=== PATIENT | female | born 2005 | race Caucasian/White ===

== ENCOUNTER 2024-05-12 01:47 | Emergency (ER) | payer BC, SELFPAY ==
[2024-05-12 02:03] VITALS: BP 120/74
[2024-05-12 02:10] VITALS: BP 121/68
--- NOTE | 2024-05-12 02:18 | ED.GENMED ---
History of Present Illness
<JOHN Mcneil - Last Filed: 05/12/24 06:09>
General
Chief Complaint: Fever
Source: patient
Time Seen by Provider: 05/12/24 02:06
Nursing documentation reviewed up to this point in time: agreed with
History of Present Illness
History of Present Illness:
Pt is a 18 yo F who presents to the emergency department tonight with fever, chills, N/V/D, cough, and nasal congestion that began on Wednesday. The patient states that she first noticed nasal congestion and then the other symptoms quickly developed
and have been constant since onset. Patient's mother states that her fever at home was around 103F since Wednesday. Pt reports that she has been having vomiting and has not been able to keep food down. She states she has been eating crackers but would
vomit. Pt reports she vomits around three times a day. Pt also reports having a cough with green sputum production. She states she also has had diarrhea at home. Pt states that she has been taking DayQuil, NyQuil, Zofran, and Advil. The last Advil
the patient took was at 11pm before coming to the ED. Pt denies chest pain, shortness of breath, urinary frequency or urgency, abdominal pain, wheezing, sick contacts. The patient's mother states that the patient has received the COVID vaccines and
the influenza vaccine in February.
Past History
<JOHN Mcneil - Last Filed: 05/12/24 06:09>
Past History
ED Past Medical History: Asthma
Social History
Tobacco: Non-smoker
Review of Systems
<JOHN Mcneil - Last Filed: 05/12/24 06:09>
Review of Systems
Allergies reviewed?: Yes
Constitutional: Reports fever, fatigue and chills
EENT: Reports sore throat and other (nasal congestion)
Respiratory: Reports cough (with green sputum production)
Cardiac: Reports no symptoms
ABD/GI: Reports nausea, vomiting and diarrhea
: Reports no symptoms
Musculoskeletal: Reports no symptoms
Skin: Reports no symptoms
Neurological: Reports no symptoms
Phy Exam
<Zuleyka Blanca, [facility] - Last Filed: 05/12/24 06:09>
General Physical Exam
General Presentation: no apparent distress
General age: appears stated age
General Skin: warm
General Habitus: normal
General Mental: alert
General Hydration: appears well hydrated
ENT Exam
ENT Exam: tonsillar exudate
Cardiovascular Exam
Cardiovascular Exam: regular rate/rhythm
Pulmonary Exam
Pulmonary Exam: lungs clear
Gastrointestinal Exam
Gastrointestinal Exam: non tender, soft and non distended
Palpation: right upper quadrant: No tenderness (Negative Quiroz's ) and right lower quadrant: No tenderness (Negative Quiroz's )
Course
<Zuleyka Blanca, [facility] - Last Filed: 05/12/24 06:09>
Orders/Labs/Results
Orders:
Orders
05/12/24 02:05
Test Result ONCE
05/12/24 02:19
COVID-19 Antigen Urgent
Source: Nasal Swab
Complete Blood Count/With Diff Urgent
Comprehensive Metabolic Panel Urgent
HCG, Serum Qualitative Screen Urgent
Monotest Urgent
Influenza A+B Rapid Molecular Urgent
DMITRI Source: Nasal Swab
Specimen Description:
05/12/24 02:36
Chest [CR Chest - 2 Views ] Urgent
Comment:
Reason For Exam: cough with green sputum, F/chills
05/12/24 03:10
Urinalysis Urgent
Date Specimen was Collected: 05/12/24
Time Specimen was Collected: 03:09
Urine Microscopic Urgent
Date Specimen was Collected: 05/12/24
Time Specimen was Collected: 03:09
05/12/24 04:24
0.9% Sodium Chloride 1000 ml [Nss] 1,000 ml IV BOLUS
05/12/24 05:17
CT Abd/pel Without Iv Or Oral Urgent
Comment: changed to non contrast per attending
Reason For Exam: liu flank pain, uti, hematuria r>L
05/12/24 05:25
Rapid Strep Group A Urgent
DMITRI Source: Throat/Pharynx
Specimen Description:
Date Specimen was Collected: 05/12/24
Time Specimen was Collected: 05:24
Abnormal Lab Results
05/12/24 05/12/24
02:19 03:10
Abs Immat Gran (auto) 0.1 H 10^3/uL
(0-0.05)
Absolute Neuts (auto) 7.8 H 10^3/uL
(1.4-6.5)
Neutrophils % 77.1 H %
(42.2-75.2)
Lymphocytes % 16.0 L %
(20.5-51.1)
Potassium 3.4 L mmol/L
(3.5-5.1)
Glucose 104 H mg/dl
(70-99)
Urine Ketones 2+ A
(Negative)
Ur Leukocyte Esterase 2+ A
(Negative)
Urine RBC 3-6 A /HPF
(0-2)
Urine WBC 16-20 A /HPF
(0-5)
Urine Bacteria Moderate A
(Negative)
05/12/24 02:19
05/12/24 02:19
Vital Signs
Initial and Last Documented VS:
Initial Vital Signs
Temp Pulse Resp Pulse Ox
98.8 F 102 20 98
05/12/24 01:48 05/12/24 01:48 05/12/24 01:48 05/12/24 01:48
Last Documented Vital Signs
Temp Pulse Resp BP Pulse Ox
98.8 F 103 13 121/68 95
05/12/24 01:48 05/12/24 02:15 05/12/24 02:15 05/12/24 02:10 05/12/24 02:15
<Vin Dominguez, DO - Last Filed: 05/12/24 06:01>
Orders/Labs/Results
Orders:
Orders
05/12/24 02:05
Test Result ONCE
05/12/24 02:19
COVID-19 Antigen Urgent
Source: Nasal Swab
Complete Blood Count/With Diff Urgent
Comprehensive Metabolic Panel Urgent
HCG, Serum Qualitative Screen Urgent
Monotest Urgent
Influenza A+B Rapid Molecular Urgent
DMITRI Source: Nasal Swab
Specimen Description:
05/12/24 02:36
Chest [CR Chest - 2 Views ] Urgent
Comment:
Reason For Exam: cough with green sputum, F/chills
05/12/24 03:10
Urinalysis Urgent
Date Specimen was Collected: 05/12/24
Time Specimen was Collected: 03:09
Urine Microscopic Urgent
Date Specimen was Collected: 05/12/24
Time Specimen was Collected: 03:09
05/12/24 04:24
0.9% Sodium Chloride 1000 ml [Nss] 1,000 ml IV BOLUS
05/12/24 05:17
CT Abd/pel Without Iv Or Oral Urgent
Comment: changed to non contrast per attending
Reason For Exam: liu flank pain, uti, hematuria r>L
05/12/24 05:25
Rapid Strep Group A Urgent
DMITRI Source: Throat/Pharynx
Specimen Description:
Date Specimen was Collected: 05/12/24
Time Specimen was Collected: 05:24
Abnormal Lab Results
05/12/24 05/12/24
02:19 03:10
Abs Immat Gran (auto) 0.1 H 10^3/uL
(0-0.05)
Absolute Neuts (auto) 7.8 H 10^3/uL
(1.4-6.5)
Neutrophils % 77.1 H %
(42.2-75.2)
Lymphocytes % 16.0 L %
(20.5-51.1)
Potassium 3.4 L mmol/L
(3.5-5.1)
Glucose 104 H mg/dl
(70-99)
Urine Ketones 2+ A
(Negative)
Ur Leukocyte Esterase 2+ A
(Negative)
Urine RBC 3-6 A /HPF
(0-2)
Urine WBC 16-20 A /HPF
(0-5)
Urine Bacteria Moderate A
(Negative)
05/12/24 02:19
05/12/24 02:19
Vital Signs
Initial and Last Documented VS:
Initial Vital Signs
Temp Pulse Resp Pulse Ox
98.8 F 102 20 98
05/12/24 01:48 05/12/24 01:48 05/12/24 01:48 05/12/24 01:48
Last Documented Vital Signs
Temp Pulse Resp BP Pulse Ox
98.8 F 103 13 121/68 95
05/12/24 01:48 05/12/24 02:15 05/12/24 02:15 05/12/24 02:10 05/12/24 02:15
<JOHN Mcneil - Last Filed: 05/12/24 06:09>
MDM/Problems Addressed
Differential Diagnosis Includes:
Pneumonia, COVID, influenza
<JOHN Mcneil - Last Filed: 05/12/24 06:09>
*Critical Care Note
Total Time (30-74mins, 75-104mins- exclusive of procedures): Not Applicable
<Vin Dominguez DO - Last Filed: 05/12/24 06:01>
Update Note
Update Note:
CT abdomen and pelvis noncontrast
IMPRESSION:
4.3 cm distended gallbladder, no calcified gallstones
Common bile duct and pancreas appear normal
Correlate clinically the need for follow-up right upper quadrant ultrasound
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
No evidence of appendicitis, diverticulitis
No AAA, bowel obstruction or free air
Flattening inferior vena cava compatible with dehydration
Lung bases are clear
Mild pectus excavatum deformity lower sternum incidentally
Results transmitted at 5:48 AM Eastern time
ED Attending Note
<JOHN Mcneil - Last Filed: 05/12/24 06:09>
-
Portions of this chart may have been created with voice recognition software.� Occasional wrong word or��sound alike� substitutions may have occurred due to the inherent limitations of voice recognition software.
<Vin Dominguez DO - Last Filed: 05/12/24 06:01>
ED Attending Note
Patient seen and examined by attending physician: Yes
I performed the substantive portion of visit, reviewed & personally made and approve the management plan that is documented in note by myself or NBA.: Yes
ED Attending Note:
This a pleasant 18-year-old female presents to the emergency department with fever. According to patient she has been sick for the last for 5 days. She has had fever and cough with bodyaches. Patient also reports urinary tract infection-like
symptoms. She has had vomiting with diarrhea. She has been taking ibuprofen last dose about 11 PM last evening. Last menstrual period was 2 weeks ago. Patient denies chest pain or shortness of breath. Patient was seen in conjunction with the PA
student. I have reviewed and agree with the history and treatment plan presented. On my independent physical exam, patient is awake, alert, and oriented x3 moderate acute distress. Skin is warm to the touch. She does have bilateral CVA
tenderness. Lungs are clear to auscultation bilaterally. Moves all 4 extremities. Normal muscle strength.
Discharge Plan
Departure
Prescriptions:
No Action
albuterol sulfate 18 GM HFA aerosol inhaler
2 puff IH QIDPRN PRN (Reason: cough, wheeze) Qty: 1 0RF
fluticasone propionate [Flovent HFA] 1 PUFF HFA aerosol inhaler
2 puff inhalation R BID Qty: 1 1RF
prednisone 20 MG tablet
20 mg PO DAILY Qty: 5 0RF
epinephrine [EpiPen] 0.3 MG/0.3/SYRINGE auto-injector
0.3 mg IM PRN PRN (Reason: severe allergic reaction) Qty: 2 1RF
oseltamivir [Tamiflu] 75 mg capsule
75 mg PO BID 5 Days Qty: 10 0RF
ondansetron 4 mg tablet,disintegrating
4 mg PO Q8H PRN (Reason: nausea and vomiting) Qty: 20 0RF
Referrals:
UNKNOWN - PT DOES,NOT KNOW [Family Provider] -
Interventions
Interventions:
*Risk Screen - Suicide Last Done: 05/12/24 01:48
*General Assessment Last Done: 05/12/24 01:48
*Neglect/Abuse Screening Last Done: 05/12/24 01:48
ED- Fall Risk Assessment Last Done: 05/12/24 02:23
*ED COVID-19 Vaccine History Last Done: 05/12/24 01:48
ED- Neurological Assessment Last Done: 05/12/24 02:23
ED-Skin Assessment Last Done: 05/12/24 02:23
Discharge Date and Time
Print Language: WELSH
[2024-05-12 02:23] VITALS: BMI 21.7
[2024-05-12 03:03] LABS: % Basophils 0.2 % (0-2); % Immature Granulocytes 0.5 % (0-0.5); % Monocytes 6.2 % (1.7-9.3); % Neutrophils 77.1 % (42.2-75.2); Absolute Immature Granulocytes 0.1 10^3/uL (0-0.05); Absolute Lymphocytes 1.6 10^3/uL (1.2-3.4); Absolute Monocytes 0.6 10^3/uL (0.1-0.6); Absolute Neutrophils 7.8 10^3/uL (1.4-6.5); Hemoglobin 14.1 g/dL (12.0-16.0); Mean Corp Hgb Conc. 33.6 g/dL (33.0-37.0); Mean Corpuscular Hgb 28.6 pg (27.0-31.0); Mean Corpuscular Volume 85.2 fL (81.0-99.0); Mean Platelet Volume 9.9 fL (7.4-10.4); Nucleated Red Blood Cells % 0 %; Platelet Count 264 10^3/uL (130-400); Red Blood Cell Count 4.93 10^6/uL (4.20-5.40); Red Cell Dist. Width 12.3 % (11.5-14.5); White Blood Cell Count 10.1 10^3/uL (4.8-10.8)
[2024-05-12 03:08] VITALS: BP 113/71
[2024-05-12 03:11] LABS: HCG, Serum Qualitative Screen Negative
[2024-05-12 03:15] LABS: ALT (SGPT) 14 U/L (0-35); AST (SGOT) 26 U/L (14-36); Albumin 4.4 g/dl (3.5-5.0); Alkaline Phosphatase 67 U/L (38-126); Blood Urea Nitrogen 16 mg/dl (7-17); Calcium 9.2 mg/dl (8.4-10.2); Carbon Dioxide 23 mmol/L (22-30); Chloride 98 mmol/L (98-107); Estimated Creatinine Clearance 87 ml/min; Glucose 104 mg/dl (70-99); Potassium 3.4 mmol/L (3.5-5.1); Sodium 138 mmol/L (135-145); Total Bilirubin 0.2 mg/dl (0.2-1.3); Total Protein 7.5 g/dl (6.3-8.2); eGFR > 60.00
[2024-05-12 03:16] LABS: Monotest Negative (Negative)
[2024-05-12 03:19] LABS: COVID-19 Antigen Negative (Negative)
[2024-05-12 03:23] LABS: Urine Albumin Trace (Neg - Trace); Urine Bilirubin Negative (Negative); Urine Character Clear (Clear); Urine Color Yellow; Urine Glucose Negative (Negative); Urine Ketone 2+ (Negative); Urine Leukocyte 2+ (Negative); Urine Nitrite Negative (Negative); Urine Occult Blood Negative (Negative); Urine Specific Gravity 1.015 (<1.030); Urine Urobilinogen Negative (Neg - 1+)
[2024-05-12 04:14] LABS: Urine Bacteria Moderate (Negative); Urine Squamous Cell >30 /LPF (Few); Urine White Cell 16-20 /HPF (0-5)
[2024-05-12] MEDS: NSS 1000 IV (04:24)
[2024-05-12] MEDS: KEFLEX 500 MG PO (06:37)
[2024-05-12 06:42] VITALS: BP 102/71
== END 2024-05-12 06:56 | disposition home or self-care (01) ==
LOC: EMR 01:47
PROVIDERS: EMERGENCY PHYSICIAN Student in an Organized Health Care Education/Training Program
DX: R50.9 Fever, unspecified (principal); R05.9 Cough, unspecified; J45.909 Unspecified asthma, uncomplicated; Q67.6 Pectus excavatum
CPT/HCPCS: 96360; 99284; 71046; 74176; 80053; 81003; 81015; 84703; 85025; 86308; 87070; 87502; 87811; 87880

== ENCOUNTER → 2024-06-15 07:52 | Outpatient (REF) | payer BC, SELFPAY ==
[2024-06-15 13:31] LABS: ALT (SGPT) 12 U/L (0-35); AST (SGOT) 19 U/L (14-36); Albumin 4.1 g/dl (3.5-5.0); Alkaline Phosphatase 47 U/L (38-126); Blood Urea Nitrogen 15 mg/dl (7-17); Carbon Dioxide 25 mmol/L (22-30); Chloride 102 mmol/L (98-107); Glucose 98 mg/dl (70-99); Potassium 3.9 mmol/L (3.5-5.1); Sodium 135 mmol/L (135-145); Total Bilirubin 0.1 mg/dl (0.2-1.3); Total Protein 6.8 g/dl (6.3-8.2); eGFR > 60.00
== END ==
LOC: HWRAD 07:52
PROVIDERS: ATTENDING PHYSICIAN Physician Assistant Medical
DX: Z01.89 Encounter for other specified special examinations (principal); R82.2 Biliuria; K82.8 Other specified diseases of gallbladder
CPT/HCPCS: 36415; 76700; 80053

== ENCOUNTER 2024-11-15 23:53 | Emergency (ER) | payer BC, SELFPAY ==
[2024-11-16] VITALS: BP 134/87
[2024-11-16 00:18] LABS: Hematocrit 39.4 % (37.0-47.0); Hemoglobin 13.1 g/dL (12.0-16.0); Mean Corp Hgb Conc. 33.2 g/dL (33.0-37.0); Mean Corpuscular Hgb 29.2 pg (27.0-31.0); Mean Corpuscular Volume 87.9 fL (81.0-99.0); Mean Platelet Volume 9.4 fL (7.4-10.4); Platelet Count 336 10^3/uL (130-400); Red Blood Cell Count 4.48 10^6/uL (4.20-5.40); Red Cell Dist. Width 12.5 % (11.5-14.5)
[2024-11-16 00:21] LABS: Urine Albumin 1+ (Neg - Trace); Urine Bilirubin 2+ (Negative); Urine Character Clear (Clear); Urine Glucose Negative (Negative); Urine Ketone Negative (Negative); Urine Leukocyte 1+ (Negative); Urine Nitrite Positive (Negative); Urine Occult Blood 1+ (Negative); Urine Specific Gravity 1.025 (<1.030); Urine Urobilinogen 3+ (Neg - 1+)
[2024-11-16 00:39] LABS: ALT (SGPT) 14 U/L (0-35); AST (SGOT) 19 U/L (14-36); Albumin 4.7 g/dl (3.5-5.0); Alkaline Phosphatase 51 U/L (38-126); Blood Urea Nitrogen 15 mg/dl (7-17); Carbon Dioxide 27 mmol/L (22-30); Chloride 107 mmol/L (98-107); Glucose 111 mg/dl (70-99); Potassium 3.9 mmol/L (3.5-5.1); Sodium 143 mmol/L (135-145); Total Bilirubin 0.6 mg/dl (0.2-1.3); Total Protein 7.9 g/dl (6.3-8.2); eGFR > 60.00
[2024-11-16 00:42] LABS: Urine Color Orange
[2024-11-16 01:33] LABS: Urine Red Blood Cell 26-30 /HPF (0-2); Urine Squamous Cell >30 /LPF (Few)
[2024-11-16 01:34] LABS: Urine Bacteria Few (Negative); Urine White Cell 50-60 /HPF (0-5)
--- NOTE | 2024-11-16 01:37 | ED.GENMED ---
History of Present Illness
General
Chief Complaint: Urinary Symptoms
Source: patient
Exam Limitations: none
Time Seen by Provider: 11/16/24 01:26
History of Present Illness
History of Present Illness:
See MDM
Past History
Past History
ED Past Medical History: Asthma
ED Past Surgical History: None
Social History
Tobacco: Non-smoker
Phy Exam
Physical Exam
Physical Exam:
See MDM
Course
Orders/Labs/Results
Orders:
Orders
11/16/24 00:11
CMP [Comprehensive Metabolic Panel] Urgent
Complete Blood Count/No Diff Urgent
Urinalysis Reflex To Culture Urgent
Date Specimen was Collected: 11/16/24
Time Specimen was Collected: 00:04
Urine Microscopic Reflex Cult Urgent
Urine Culture Urgent
DMITRI Source: U
Specimen Description:
Date Specimen was Collected: 11/16/24
Time Specimen was Collected: 00:04
11/16/24 01:34
Cephalexin Monohydrate [Keflex] 500 mg PO NOW STA
Ondansetron Orally Disint [Zofran Odt (Orally Disintegrating)] 4 mg PO NOW STA
Tramadol HCl [Ultram] 50 mg PO NOW STA
11/16/24 01:36
Cephalexin Monohydrate [Keflex] 1,000 mg PO NOW STA
Abnormal Lab Results
11/16/24
00:11
WBC 11.0 H 10^3/uL
(4.8-10.8)
Glucose 111 H mg/dl
(70-99)
Ur Occult Blood Reflex 1+ A
(Negative)
Urine Nitrite (Reflex) Positive A
(Negative)
Urine Bilirubin 2+ A
(Negative)
Urine Urobilinogen 3+ A
(Neg - 1+)
Leukocyte Esterase Rfl 1+ A
(Negative)
Urine RBC 26-30 A /HPF
(0-2)
Urine WBC (Reflex) 50-60 A /HPF
(0-5)
Urine Bacteria (Reflex) Few A
(Negative)
Urine Albumin (Reflex) 1+ A
(Neg - Trace)
11/16/24 00:11
11/16/24 00:11
Vital Signs
Initial and Last Documented VS:
Initial Vital Signs
Temp Pulse Resp BP Pulse Ox
98.3 F 97 20 134/87 96
11/16/24 00:00 11/16/24 00:00 11/16/24 00:00 11/16/24 00:00 11/16/24 00:00
Last Documented Vital Signs
Temp Pulse Resp BP Pulse Ox
98.3 F 97 16 134/87 96
11/16/24 00:00 11/16/24 00:00 11/16/24 01:19 11/16/24 00:00 11/16/24 00:00
MDM/Problems Addressed
Differential Diagnosis Includes:
HPI and MDM Narrative:
19-year-old female presenting with urinary tract infection symptoms now with right flank pain. 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 She was placed on Macrobid and Pyridium. Patient states she is now
developing the flank pain. She denies any fevers. On my exam, she is well-appearing and nontoxic. She does not have CVA tenderness. She does have mild leukocytosis from blood work that was obtained prior to my evaluation. Urinalysis also
confirms concern for UTI. Given the flank pain with UTI, will treat as pyelonephritis. She has tolerated Keflex in the past
We discussed the possibility of kidney stones as well but there is no significant family history. We discussed low utility of CT given the radiation risk for minimal concern. They do understand that this is still a possibility. Will write for
Keflex and she understands return precautions including worsening pain or fever
Physical exam
General: Well appearing and non-toxic
HEENT: protecting airway
Neck: appears supple
CV: No evidence of cyanosis
Resp: No accessory muscle use
Abd: Non-distended and nontender
Back: No CVA tenderness
Extremities: No deformities
Neuro: alert
Psych: Normal affect
Skin: Intact
Problems Addressed including Acute and Chronic Conditions affecting care:
1. Pyelonephritis
Acuity: acute
Prognosis: stable
Details: Will start high-dose Keflex
Differential Diagnosis (but not limited to): Pyelonephritis, kidney stone
Testing considered: CT abdomen/pelvis
Drug therapy (if applicable): OTC meds, please see d/c instruction regarding Rx drugs
Amount and/or Complexity of Data Reviewed
Clinical info obtained from: Patient
External data reviewed: N/A
Labs I independently reviewed (but not limited to): Leukocytosis
Radiology: N/A
Pulse Ox: not hypoxic
EKG independently reviewed: N/A
Real Estate Acquisition Analyst: N/A
Critical Care: N/A
Risk of Complication:
Social Determinants of health: Good social support
Discussed with other providers: N/A
Escalation of Care includes Admit/Obs: After being observed in the Emergency Department, pt stable for discharge.
Occasional wrong word or 'sound a like' substitutions may have occurred due to the inherent limitations of voice recognition software. Read the chart carefully and recognize, using context, where substitutions have occurred.
*Critical Care Note
Total Time (30-74mins, 75-104mins- exclusive of procedures): Not Applicable
ED Attending Note
-
Portions of this chart may have been created with voice recognition software.� Occasional wrong word or��sound alike� substitutions may have occurred due to the inherent limitations of voice recognition software.
Discharge Plan
Departure
Patient Disposition: Home (Routine Discharge)
Date of Disposition: 11/16/24
Time of Disposition: 01:43
Patient with high blood pressure during this ER visit?: No
Discharge Problem:
Pyelonephritis
Prescriptions:
New
cephalexin 500 mg capsule
1,000 mg PO BID 7 Days Qty: 28 0RF
ondansetron 4 mg Tablet,Disintegrating
4 mg PO BIDPRN PRN (Reason: nausea/vomiting) Qty: 10 0RF
No Action
albuterol sulfate 18 GM HFA aerosol inhaler
2 puff IH QIDPRN PRN (Reason: cough, wheeze) Qty: 1 0RF
fluticasone propionate [Flovent HFA] 1 PUFF HFA aerosol inhaler
2 puff inhalation R BID Qty: 1 1RF
prednisone 20 MG tablet
20 mg PO DAILY Qty: 5 0RF
epinephrine [EpiPen] 0.3 MG/0.3/SYRINGE auto-injector
0.3 mg IM PRN PRN (Reason: severe allergic reaction) Qty: 2 1RF
oseltamivir [Tamiflu] 75 mg capsule
75 mg PO BID 5 Days Qty: 10 0RF
ondansetron 4 mg tablet,disintegrating
4 mg PO Q8H PRN (Reason: nausea and vomiting) Qty: 20 0RF
cephalexin 500 mg capsule
500 mg PO BID 7 Days Qty: 14 0RF
Referrals:
Quintin Del Castillo PA-C [Family Provider, Family Practice]
Activity Restrictions/Additional Instructions:
Please return for any worsening symptoms, especially fevers.
You may return at any time if you have further concerns.
Please follow up with your doctor at the first available appointment, preferably this week.
Thank you for choosing [facility].
Interventions
Interventions:
*Risk Screen - Suicide Last Done: 11/16/24 00:00
*General Assessment Last Done: 11/16/24 00:00
*Neglect/Abuse Screening Last Done: 11/16/24 00:00
Discharge Date and Time
Print Language: POLISH
[2024-11-16] MEDS: KEFLEX 1000 MG PO (01:40)
[2024-11-16] MEDS: ULTRAM 50 MG PO (01:41)
[2024-11-16] MEDS: ZOFRAN ODT (ORALLY DISINTEGRATING) 4 MG PO (01:42)
[2024-11-16 01:43] VITALS: BP 130/76
== END 2024-11-16 01:47 | disposition home or self-care (01) ==
LOC: EMR 23:53
PROVIDERS: Emergency Medicine; EMERGENCY PHYSICIAN Student in an Organized Health Care Education/Training Program; FAMILY PHYSICIAN Physician Assistant Medical
DX: N12 Tubulo-interstitial nephritis, not specified as acute or chronic (principal); J45.909 Unspecified asthma, uncomplicated
CPT/HCPCS: 99283; 80053; 81003; 81015; 85027; 87086

== ENCOUNTER → 2024-12-08 08:09 | Outpatient (REF) | payer BC, SELFPAY | LOC: CLAB 08:09 | PROVIDERS: ATTENDING PHYSICIAN Otolaryngology | DX: J35.01 Chronic tonsillitis (principal) | CPT/HCPCS: 88304 ==